=== PATIENT | male | born 1990 | race Hispanic/Latino ===

== ENCOUNTER 2017-01-21 19:54 | Emergency (ER) | payer BC ==
[2017-01-21 19:55] VITALS: BMI 25.4
[2017-01-21 20:02] VITALS: TEMP 99
--- NOTE | 2017-01-21 20:22 | ED PDOC ---
Arrival/HPI - General Historian: Patient - History of Present Illness Time/Duration: Prior to Arrival Symptom Onset: Sudden Symptom Course: Unchanged Quality: Other Severity Level: 3 Activities at Onset: Rest <Elías Bhatti - Last Filed: 01/21/17 22:26> - General Historian: Patient <Joie Luo - Last Filed: 01/21/17 22:50> - General Chief Complaint: Abnormal Skin Integrity Time Seen by Provider: 01/21/17 20:07 - History of Present Illness Narrative History of Present Illness (Text): 01/21/17 20:19 This is a 26 yr. old male with no pertinent past medical history who comes to [facility] with a head laceration. The patient reports playing basketball earlier today when another person hit his forehead with their tooth. The patient denies any fevers, chills, nausea, vomiting, lightheadedness, dizziness, syncopal episodes, changes in vision, chest pain, shortness of breath or any other complaints. (Elías Bhatti) Past Medical History - Provider Review Nursing Documentation Reviewed: Yes - Travel History Have you recently traveled outside [place] w/in the past 3 mons?: No - Past History Past History: No Previous - Infectious Disease Hx of Infectious Diseases: None - Tetanus Immunization Tetanus Immunization: Unknown - Past Medical History Past Medical History: No Previous - Psychiatric Hx Psychophysiologic Disorder: Yes Hx Substance Use: No Other/Comment: ADHD - Past Surgical History Past Surgical History: No Previous - Anesthesia Hx Anesthesia: No Hx Anesthesia Reactions: No Hx Malignant Hyperthermia: No <Elías Bhatti - Last Filed: 01/21/17 22:26> Family/Social History - Physician Review Nursing Documentation Reviewed: Yes Family/Social History: No Known Family HX Smoking Status: Never Smoked Hx Alcohol Use: Yes Frequency of alcohol use: Socially Hx Substance Use: No <Elías Bhatti - Last Filed: 01/21/17 22:26> Allergies/Home Meds <Elísa Bhatti - Last Filed: 01/21/17 22:26> <Joie Luo - Last Filed: 01/21/17 22:50> Allergies/Adverse Reactions: Allergies No Known Allergies Allergy (Verified 01/21/17 20:01) Review of Systems - Physician Review All systems were reviewed & negative as marked: Yes - Review of Systems Constitutional: Normal. absent: Fevers, Night Sweats Eyes: Normal. absent: Vision Changes, Eye Pain ENT: Normal. absent: Rhinorrhea, Sinus Congestion Respiratory: Normal. absent: SOB, Cough, Wheezing Cardiovascular: Normal. absent: Chest Pain, Syncope Gastrointestinal: Normal. absent: Constipation, Diarrhea, Nausea, Vomiting, Hematochezia Genitourinary Male: Normal. absent: Frequency, Hematuria Musculoskeletal: Normal. absent: Back Pain, Neck Pain Skin: Laceration (on the right side of the forehead at the hairline). absent: Skin Lesions, Abscess Neurological: Normal. absent: Headache, Dizziness Endocrine: Normal. absent: Diaphoresis, Polyuria, Polydipsia Psychiatric: Normal <Elías Bhatti - Last Filed: 01/21/17 22:26> Physical Exam Vital Signs Reviewed: Yes Temperature: Afebrile Blood Pressure: Normal Pulse: Tachycardic Respiratory Rate: Normal Appearance: Positive for: Well-Appearing, Non-Toxic, Comfortable Pain Distress: None Mental Status: Positive for: Alert and Oriented X 3 - Systems Exam Head: Present: Atraumatic, Normocephalic, Laceration (noted on the right forehead at the hairline) Pupils: Present: PERRL. No: Sluggish, Non-Reactive Extroacular Muscles: Present: EOMI. No: Entrapment Conjunctiva: Present: Normal. No: Injected Mouth: Present: Moist Mucous Membranes, Normal Tounge. No: Drooling Neck: Present: Normal Range of Motion. No: JVD, Lymphadenopathy Respiratory/Chest: Present: Clear to Auscultation, Good Air Exchange. No: Respiratory Distress, Accessory Muscle Use, Wheezes Cardiovascular: Present: Regular Rate and Rhythm, Normal S1, S2. No: Murmurs, Bradycardic Abdomen: Present: Normal Bowel Sounds. No: Tenderness, Distention, Rebound, Guarding Upper Extremity: Present: Normal Inspection. No: Cyanosis, Edema Lower Extremity: Present: Normal Inspection. No: Edema Neurological: Present: CN II-XII Intact, Speech Normal Skin: Present: Dry, Normal Color. No: Warm, Rashes Psychiatric: Present: Alert, Oriented x 3, Normal Insight <Elías Bhatti - Last Filed: 01/21/17 22:26> Medical Decision Making <Elías Bhatti - Last Filed: 01/21/17 22:26> <Joie Luo - Last Filed: 01/21/17 22:50> ED Course and Treatment: 01/21/17 20:30 This is a 26 yr. old male that comes to [facility] after getting a head laceration from a tooth playing basketball. Patient will get sutures and oral antibiotics. Patient will be discharged. 01/21/17 21:59 Patient given antibiotics twice daily for 5 days (Pen VK). Discussed with patient that he will be able to return to the E.D. or PMD to have sutures removed in 8 to 10 days. 01/21/17 22:01 Performed by the emergency provider Location: Right forehead at the hairline. Length: 4 cm x 3cm Description: {"clean wound edges","no foreign bodies"} Distal CMS: Normal. No deficits. Neurovascularly intact. Anesthesia: Lidocaine 1%/Xylocaine 1% Preparation: The wound was cleaned with NS and Betadyne. The area was prepped and draped in the usual sterile fashion. Exploration: ~The wound was explored and no foreign bodies were found. Procedure: The wound was closed with 5-0 Prolene. There was good approximation. In total, 10 were used. Post-Procedure: Good closure and hemostasis. The patient tolerated the procedure well and there were no complications. CSM remains intact. Post procedure dressing applied. (Elías Bhatti) 01/21/17 22:21 In agreement with resident note, which includes further HPI details. Patient was seen and evaluated with resident, came up with plan and treatment together. 01/21/17 22:49 Laceration sutured as above - ok for d/c on abx, as it was caused from a tooth with oral marylu. Tdap is UTD. (Joie Luo) <Elías Bhatti - Last Filed: 01/21/17 22:26> - PA / TRANSACTION PROCESSOR / Resident Statement / has reviewed & agrees with the documentation as recorded. / has examined the patient and agrees with the treatment plan. - Scribe Statement The provider has reviewed the documentation as recorded by the Scribe <Joie Luo - Last Filed: 01/21/17 22:50> - Scribe Statement 01/21/2017 Judi Cruz Provider Scribe Attestation: All medical record entries made by the Scribe were at my direction and personally dictated by me. I have reviewed the chart and agree that the record accurately reflects my personal performance of the history, physical exam, medical decision making, and the department course for this patient. I have also personally directed, reviewed, and agree with the discharge instructions and disposition. (Joie Luo) Disposition/Present on Arrival - Present on Arrival Any Indicators Present on Arrival: No History of DVT/PE: No History of Uncontrolled Diabetes: No Urinary Catheter: No History of Decub. Ulcer: No History Surgical Site Infection Following: None - Disposition Have Diagnosis and Disposition been Completed?: Yes Disposition Time: 22:05 Patient Plan: Discharge <Elías Bhatti - Last Filed: 01/21/17 22:26> <Joie Luo - Last Filed: 01/21/17 22:50> - Disposition Diagnosis: Laceration of head Disposition: HOME/ ROUTINE Condition: GOOD Discharge Instructions (ExitCare): Care For Your Stitches (ED) Additional Instructions: Instructed patient to F/U with PMD or return to E.D. for suture removal in 8 to 10 days. Instructed patient to take Pen VK twice daily for a total of 5 days. Patient is to return to [facility] for any new or worsening symptoms. Prescriptions: Penicillin VK [Penicillin VK Tab] 250 mg PO BID #10 tab Referrals: Harvey Hardy MD [Primary Care Provider] - Follow up with primary Forms: [employer] (Zimbabwean)
[2017-01-21 22:16] VITALS: BP 145/74; PULSE 74; RESP 16; O2SAT 99
== END 2017-01-21 22:16 | disposition home or self-care (01) ==
LOC: ED 19:54
DX: S01.81XA Laceration without foreign body of other part of head, initial encounter (principal); W50.0XXA Accidental hit or strike by another person, initial encounter; Y93.67 Activity, basketball

== ENCOUNTER 2017-01-22 14:41 | Emergency (ER) | payer BC ==
[2017-01-22 14:53] VITALS: BMI 26.6
[2017-01-22 14:56] VITALS: BP 120/75; PULSE 55; RESP 17; TEMP 97.9
--- NOTE | 2017-01-22 15:08 | ED PDOC ---
Arrival/HPI - General Chief Complaint: Upper Extremity Problem/Injury Time Seen by Provider: 01/22/17 15:03 Historian: Patient - History of Present Illness Narrative History of Present Illness (Text): 01/22/17 15:04 26 y/o male, s/p seen in the ER yesterday with 10 stiches, c/o rt. shoulder pain x 2 days. Pt. was playing basketball last night, injured the rt. shoulder , aching pain, feeling stiffness, no numbness or tingling, no pain medication taken at home, no rash, no other medical or psychological complaints. Past Medical History - Provider Review Nursing Documentation Reviewed: Yes - Past History Past History: No Previous - Infectious Disease Hx of Infectious Diseases: None - Tetanus Immunization Tetanus Immunization: Unknown - Past Medical History Past Medical History: No Previous - Psychiatric Hx Psychophysiologic Disorder: Yes Hx Substance Use: No Other/Comment: ADHD - Past Surgical History Past Surgical History: No Previous - Anesthesia Hx Anesthesia: No Hx Anesthesia Reactions: No Hx Malignant Hyperthermia: No Family/Social History - Physician Review Nursing Documentation Reviewed: Yes Family/Social History: Unknown Family HX Smoking Status: Never Smoked Hx Alcohol Use: Yes Frequency of alcohol use: Socially Hx Substance Use: No Allergies/Home Meds Allergies/Adverse Reactions: Allergies No Known Allergies Allergy (Verified 01/22/17 14:53) Review of Systems - Review of Systems Constitutional: absent: Fatigue, Fevers Eyes: absent: Vision Changes ENT: absent: Hearing Changes Respiratory: absent: SOB, Cough Cardiovascular: absent: Chest Pain Gastrointestinal: absent: Abdominal Pain, Diarrhea, Nausea, Vomiting Musculoskeletal: Arthralgias. absent: Back Pain, Neck Pain, Myalgias Skin: absent: Rash, Pruritis Neurological: absent: Headache, Dizziness, Focal Weakness, Gait Changes Physical Exam Vital Signs Reviewed: Yes Vital Signs Temp Pulse Resp BP Pulse Ox 01/22/17 14:55 97.9 F 55 L 17 120/75 100 Temperature: Afebrile Blood Pressure: Normal Pulse: Bradycardic Respiratory Rate: Normal Appearance: Positive for: Well-Appearing, Non-Toxic, Comfortable Pain Distress: Moderate Mental Status: Positive for: Alert and Oriented X 3 - Systems Exam Head: Present: Atraumatic, Normocephalic Pupils: Present: PERRL Extroacular Muscles: Present: EOMI Conjunctiva: Present: Normal Mouth: Present: Moist Mucous Membranes Neck: Present: Normal Range of Motion Respiratory/Chest: Present: Clear to Auscultation, Good Air Exchange. No: Respiratory Distress, Accessory Muscle Use Cardiovascular: Present: Regular Rate and Rhythm, Normal S1, S2. No: Murmurs Abdomen: Present: Normal Bowel Sounds. No: Tenderness, Distention, Peritoneal Signs Back: Present: Normal Inspection Upper Extremity: Present: Normal Inspection, Other (Rt. shoulder: +ttp and mild swelling to the rt. AC join region, no rash, no erythematous, FROM without limitionation but pain with rt. shoulder extension, sensation intact, motor 5/5 , +Radial pulse, capillary refill< 2 seconds, neurovascular intact. ). No: Cyanosis, Edema Lower Extremity: Present: Normal Inspection. No: Edema Neurological: Present: GCS=15, Speech Normal, Motor Func Grossly Intact, Gait Normal, Memory Normal Skin: Present: Warm, Dry, Normal Color. No: Rashes Psychiatric: Present: Alert, Oriented x 3, Normal Insight, Normal Concentration Medical Decision Making ED Course and Treatment: 01/22/17 15:10 -rt. shoulder xray -sling -motrin 01/22/17 16:03 -Rt. shoulder show no fracture or dislocation. -Discharge home with naproxen, ice compression, sling, follow up with your own pmd and orthopedic within 2 days, return to the ER for any new or worsening signs or symptoms. - RAD Interpretation Radiology Orders: 01/22/17 15:06 SHOULDER RIGHT [RAD] Stat PROCEDURE: Radiographs of the Right Shoulder HISTORY: rt. shoulder pain s/p basketball injury COMPARISON: No prior. FINDINGS: BONES: New subcortical tiny coalescence cysts is suggested in the humeral head. No fracture. JOINTS: Normal. Glenohumeral and acromioclavicular joints preserved. No osteoarthritis. SOFT TISSUES: Normal. OTHER FINDINGS: None. IMPRESSION: No fracture or dislocation. Rn Cardiovascular: Radiologist - Medication Orders Current Medication Orders: Discontinued Medications Ibuprofen (Motrin Tab) 600 mg PO STAT STA Stop: 01/22/17 15:07 Last Admin: 01/22/17 15:12 Dose: 600 mg - PA / SAP CONSULTANT / Resident Statement MD/DO has reviewed & agrees with the documentation as recorded. Disposition/Present on Arrival - Present on Arrival Any Indicators Present on Arrival: No History of DVT/PE: No History of Uncontrolled Diabetes: No Urinary Catheter: No History of Decub. Ulcer: No History Surgical Site Infection Following: None - Disposition Have Diagnosis and Disposition been Completed?: Yes Diagnosis: Shoulder injury, Shoulder pain Disposition: HOME/ ROUTINE Disposition Time: 15:10 Patient Plan: Discharge Patient Problems: Current Active Problems Problem Status Onset Shoulder injury Acute Condition: IMPROVED Additional Instructions: Discharge home with naproxen, ice compression, sling, follow up with your own pmd and orthopedic within 2 days, return to the ER for any new or worsening signs or symptoms. Prescriptions: Naproxen 500 mg PO BID PRN #20 tab PRN Reason: Other Referrals: Harvey Hardy MD [Primary Care Provider] - Follow up with primary Ty Moore MD [Staff Provider] - Follow up with primary Forms: [employer] (Thai), WORK NOTE
--- NOTE | 2017-01-22 15:53 | RAD ---
PROCEDURE: Radiographs of the Right Shoulder HISTORY: rt. shoulder pain s/p basketball injury COMPARISON: No prior. FINDINGS: BONES: New subcortical tiny coalescence cysts is suggested in the humeral head. No fracture. JOINTS: Normal. Glenohumeral and acromioclavicular joints preserved. No osteoarthritis. SOFT TISSUES: Normal. OTHER FINDINGS: None. IMPRESSION: No fracture or dislocation.
[2017-01-22 16:21] VITALS: O2SAT 98
== END 2017-01-22 16:21 | disposition home or self-care (01) ==
LOC: ED 14:41
DX: M25.511 Pain in right shoulder (principal); S49.91XA Unspecified injury of right shoulder and upper arm, initial encounter; X58.XXXA Exposure to other specified factors, initial encounter; Y93.67 Activity, basketball

== ENCOUNTER 2017-01-30 20:51 | Emergency (ER) | payer BC ==
[2017-01-30 20:52] VITALS: BMI 26.6
[2017-01-30 21:00] VITALS: BP 119/73; PULSE 86; RESP 18; TEMP 97.9; O2SAT 100
--- NOTE | 2017-01-30 21:10 | ED PDOC ---
Arrival/HPI <Joie Luo - Last Filed: 01/30/17 21:13> - General Historian: Patient <León Duggan - Last Filed: 01/30/17 21:30> - General Chief Complaint: Suture/Staple Removal Time Seen by Provider: 01/30/17 21:00 - History of Present Illness Narrative History of Present Illness (Text): 01/30/17 21:20 26 year old male is presenting to the emergency department for removal of sutures that were placed on 01/21/17. Patient states he is feeling well and just came here because this is where they were placed. Denies any pain, f/c, n/v, bleeding, burning or discharge from the wound. (León Duggan) Past Medical History - Provider Review Nursing Documentation Reviewed: Yes - Past History Past History: No Previous - Infectious Disease Hx of Infectious Diseases: None - Tetanus Immunization Tetanus Immunization: Unknown - Past Medical History Past Medical History: No Previous - Psychiatric Hx Psychophysiologic Disorder: Yes Hx Substance Use: No Other/Comment: ADHD - Past Surgical History Past Surgical History: No Previous - Anesthesia Hx Anesthesia: No Hx Anesthesia Reactions: No Hx Malignant Hyperthermia: No <León Duggan - Last Filed: 01/30/17 21:30> Family/Social History - Physician Review Nursing Documentation Reviewed: Yes Family/Social History: Unknown Family HX Smoking Status: Never Smoked Hx Alcohol Use: Yes Hx Substance Use: No <León Duggan - Last Filed: 01/30/17 21:30> Allergies/Home Meds <Joie Luo - Last Filed: 01/30/17 21:13> <León Duggan - Last Filed: 01/30/17 21:30> Allergies/Adverse Reactions: Allergies No Known Allergies Allergy (Verified 01/30/17 20:58) Review of Systems - Review of Systems Constitutional: Normal. absent: Fevers Eyes: absent: Vision Changes Respiratory: absent: Cough Gastrointestinal: absent: Nausea, Vomiting Skin: absent: Rash, Pruritis, Abscess, Cellulitis <León Duggan - Last Filed: 01/30/17 21:30> Physical Exam Vital Signs Reviewed: Yes Temperature: Afebrile Blood Pressure: Normal Pulse: Regular Respiratory Rate: Normal Appearance: Positive for: Well-Appearing, Non-Toxic, Comfortable Pain Distress: None Mental Status: Positive for: Alert and Oriented X 3 - Systems Exam Head: Present: Laceration (Healing laceration of right forehead along hair line. 10 sutures in total. ) Neurological: Present: GCS=15 Skin: Present: Warm, Dry, Normal Color, Laceration (Healing laceration of right forehead along hair line. 10 sutures in total. ). No: Rashes Psychiatric: Present: Alert, Oriented x 3, Normal Insight, Normal Concentration <León Duggan - Last Filed: 01/30/17 21:30> Vital Signs Temp Pulse Resp BP Pulse Ox 01/30/17 20:59 97.9 F 86 18 119/73 100 Medical Decision Making <Joie Luo - Last Filed: 01/30/17 21:13> <León Duggan - Last Filed: 01/30/17 21:30> ED Course and Treatment: 01/30/17 21:25 Head Laceration - Removed 10 sutures located on the right side of the patient's forehead that were placed on 01/21/17. - Patient appears to be healing well from laceration. Dispo: Patient is to be discharged home. Patient is to return to the emergency department if any new symptoms or questions arise. (León Duggan) Disposition/Present on Arrival - Present on Arrival Any Indicators Present on Arrival: No - Disposition Have Diagnosis and Disposition been Completed?: Yes Disposition Time: 21:10 Patient Plan: Discharge <Joie Luo - Last Filed: 01/30/17 21:13> - Present on Arrival Any Indicators Present on Arrival: No History of DVT/PE: No History of Uncontrolled Diabetes: No Urinary Catheter: No History of Decub. Ulcer: No History Surgical Site Infection Following: None - Disposition Have Diagnosis and Disposition been Completed?: Yes Patient Plan: Discharge <León Duggan - Last Filed: 01/30/17 21:30> - Disposition Diagnosis: Encounter for removal of sutures Discharge Instructions (ExitCare): Stitches Removal (ED) Additional Instructions: Keep wound clean. Follow up with primary care. Return to the emergency department if any new concerning symptoms. Referrals: [facility] at [facility] [place] [Outside] - Follow up with primary Forms: [email or web address] (Lithuanian)
== END 2017-01-30 21:20 | disposition home or self-care (01) ==
LOC: ED 20:51
DX: Z48.02 Encounter for removal of sutures (principal)